=== PATIENT | male | born 1950 | race Asian ===

== ENCOUNTER 2020-03-27 08:12 | Outpatient (REF) | payer MEDICARE, OTHER, SELFPAY ==
[2020-03-27 09:20] LABS: MANUAL DIFF FLAG NO
[2020-03-27 09:26] LABS: Basophils Absolute Auto 0.1 X10*3/uL (0.0-0.2); Basophils Percent Auto 0.9 % (0-2); Eosinophils Absolute Auto 0.2 X10*3/uL (0.0-0.4); Hematocrit 44.9 % (42-52); Hemoglobin 14.2 g/dl (14.0-18.0); Imm Gran Abs Auto 0.01 X10*3/uL (0.00-0.03); Imm Gran Pct Auto 0.2 % (0.0-0.4); Lymphocytes Absolute Auto 1.5 X10*3/uL (1.2-4.9); Lymphocytes Percent Auto 28.4 % (20-40); Mean Corpuscular HGB Conc 31.6 g/dl (31.0-36.0); Mean Corpuscular Hemoglobin 24.8 pg (27.0-33.0); Mean Corpuscular Volume 78.5 fL (80-98); Mean Platelet Volume 9.7 fL (9.4-12.4); Monocytes Absolute Auto 0.5 X10*3/uL (0.1-1.2); Monocytes Percent Auto 9.5 % (2-11); Platelet Count 247 X10*3/uL (160-400); Red Blood Count 5.72 X10*6/uL (4.60-5.80); Red Cell Distribution Width 13.9 % (11.0-16.0); White Blood Count 5.3 X10*3/uL (4.8-10.8)
[2020-03-27 09:58] LABS: Alanine Aminotransferase 15 U/L (0-40); Albumin Level 4.1 g/dL (3.5-5.0); Alkaline Phosphatase 52 U/L (39-117); Anion Gap 11 (12-20); Aspartate Amino Transferase 17 U/L (5-37); Bilirubin Total 0.7 mg/dL (0.0-1.0); Blood Urea Nitrogen 10 mg/dL (9-16); Carbon Dioxide 29 mmol/L (22-29); Chloride 105 mmol/L (96-108); Cholesterol 179 mg/dL; Estimated Glomerular Filt Rate > 60; Glucose Random 95 mg/dL (60-115); HDL Cholesterol 52 mg/dL; LDL Cholesterol Calculated 109 mg/dl; Potassium 4.9 mmol/L (3.3-5.1); Sodium 140 mmol/L (135-145); Total Protein 6.8 g/dL (6.5-8.0); Triglycerides 91 mg/dL
[2020-03-27 10:57] LABS: Prostate Specific Antigen < 0.05 ng/mL (<0.05-4.0)
== END 2020-03-27 08:13 | disposition home or self-care (01) ==
LOC: HO.LAB 08:12
PROVIDERS: PCP Internal Medicine; Visit Provider Internal Medicine
DX: Z12.5 Encounter for screening for malignant neoplasm of prostate (principal); E78.00 Pure hypercholesterolemia, unspecified; K22.70 Barrett's esophagus without dysplasia; Z85.46 Personal history of malignant neoplasm of prostate
CPT/HCPCS: 36415; 80053; 80061; 84153; 85025

== ENCOUNTER 2020-10-15 07:25 | Day surgery (SDC) | payer MEDICARE, OTHER, SELFPAY ==
[2020-10-08 14:48] VITALS: BMI 26.7
--- NOTE | 2020-10-11 09:16 | P.CONAN_ITS ---
Documented by User: Abbey Sewell NP 10/11/20 09:18 HPI - Anesthesia Eval Consult details Narrative: 70yo M for Upper Endoscopy PENDING SALE TO [facility] Past Medical History Medical History Elevated cholesterol Hepatitis History of Avery's esophagus History of prostate cancer Surgical History Surgical History H/O colonoscopy History of esophagogastroduodenoscopy (EGD) Hx of prostatectomy Social History Social History Patient Tobacco Use Status: Never used Tobacco Advance Directives Information Provided: No Meds Allergies Allergy/AdvReac Type Severity Reaction Status Date / Time No Known Allergies Allergy Verified 10/15/20 07:00 Home Medications Medication Instructions Recorded Confirmed Last Taken Type Vitamin D3 1 tab PO DAILY 10/08/20 10/08/20 Unknown History calcium 1 tab PO DAILY 10/08/20 10/08/20 Unknown History esomeprazole magnesium 40 mg 40 mg PO DAILY 10/08/20 10/08/20 Unknown History capsule,delayed release (Nexium) rosuvastatin 5 mg tablet 1 tab PO DAILY 10/08/20 10/08/20 Unknown History Exam Exam Date and Time: October 11, 2020 0916 Height,Weight and Vital Signs: Height 6 ft Weight 89.358 kg Assessment and Plan Assessment Anesthesia Assessment: Chart Reviewed Documented by User: Lizbeth Lee MD 10/15/20 07:18 PENDING SALE TO [facility] Past Medical History Medical History Elevated cholesterol Hepatitis History of Avery's esophagus History of prostate cancer Family History Family history of problems with anesthesia: No Surgical History Surgical History H/O colonoscopy History of esophagogastroduodenoscopy (EGD) Hx of prostatectomy History of Problems with Anesthesia: No Social History Social History Patient Tobacco Use Status: Never used Tobacco Advance Directives Information Provided: No Meds Allergies Allergy/AdvReac Type Severity Reaction Status Date / Time No Known Allergies Allergy Verified 10/15/20 07:00 Home Medications Medication Instructions Recorded Confirmed Last Taken Type Vitamin D3 1 tab PO DAILY 10/08/20 10/08/20 Unknown History calcium 1 tab PO DAILY 10/08/20 10/08/20 Unknown History esomeprazole magnesium 40 mg 40 mg PO DAILY 10/08/20 10/08/20 Unknown History capsule,delayed release (Nexium) rosuvastatin 5 mg tablet 1 tab PO DAILY 10/08/20 10/08/20 Unknown History Exam Height,Weight and Vital Signs: Height 6 ft Weight 89.358 kg Vital Signs Temp Pulse Resp BP Pulse Ox 10/15/20 07:00 997.3 F H 53 18 156/79 H 99 Airway Mallampati Class: II TM Dist: >3cm Neck ROM: Full Partial: Lower Heart: RRR Lungs: CTAB Assessment and Plan Assessment Anesthesia Assessment: Anesthesia Plan Discussed Final Anesthetic Review Family History of Problems with Anesthesia: No History of Problems with Anesthesia: No NPO: Yes ASA Class: II Final Preanesthetic Review: No Changes in Pt Med Stat, Meds/Allgs Chart Reviewed, Consent Obtained/Reviewed and Anes Risks/Benef Reviewed Patient Risk: Low Procedure Risk: Low Assessment/Block/Sedation in SS: Assess/Block/Sedation-SS Anesthetic Plan Anesthetic Plan: MAC: Disposition: Standard PACU
[2020-10-15 07:00] VITALS: BP 156/79; PULSE 53; RESP 18; TEMP 36.3; O2SAT 99
[2020-10-15] MEDS: Lactated Ringers 1,000 ML 100 ML IVCONT (07:09)
--- NOTE | 2020-10-15 07:33 | MHC.SHP ---
Pre-Procedural Eval Section A Date of Service: 10/15/20 The patient is an INPATIENT: No Section B Chief Complaint: melendez's esophagus Details of Present Illness: see H&P no changes Relevant Family History (Specify if Yes): No Present Medications: see Short Stay Collaborative assessment Medical History: No relevant PMH History of Previous Operations: No relevant previous surgery Allergies: Allergies Allergy/AdvReac Type Severity Reaction Status Date / Time No Known Allergies Allergy Verified 10/15/20 07:00 Review of Systems Sugical H&P ROS: Negative: Constitution, Cardiovascular, Respiratory, Neurological, Psychiatric, Hem-Onc, Allergic/Immunologic, Gastrointestinal, Genitourinary, Musculoskeletal, Integumentary, Endocrine and Eyes/Ears/Nose/Throat Exam Surgical H&P Exam: Normal: HEENT, Normal: Heart, Normal: Lungs, Normal: Extremities, Normal: Abdomen, Normal: Skin and Normal: Neurological Plan Diagnosis/Plan: Unchanged I have reviewed the history and physical and performed a pertinent physical examination on my patient. No changes have occurred unless specified.
--- NOTE | 2020-10-15 07:48 | P.BOP_ITS ---
Brief Operative Note Date of Service: 10/15/20 Pre-op diagnosis: barretts esophagus Procedure: upper endoscopy Surgeon: Lopez Aguilera Anesthesia: MAC Was an Assistant Activities Director used for this Procedure?: No Estimated blood loss (mL): 2 Pathology: other (bxs egj) Condition: stable Disposition: PACU
[2020-10-15 07:51] VITALS: BP 101/59; PULSE 58; TEMP 36.3; O2SAT 100
[2020-10-15 08:07] VITALS: BP 107/67; PULSE 64; RESP 16; TEMP 36.3; O2SAT 98
--- NOTE | 2020-10-15 08:43 | OP_ITS ---
SURGEON: Lopez Aguilera MD INDICATIONS: Avery's esophagus. PREOPERATIVE DIAGNOSIS: POSTOPERATIVE DIAGNOSIS: PROCEDURE PERFORMED: Upper endoscopy with biopsy. ESTIMATED BLOOD LOSS: COMPLICATIONS: ANESTHESIA: ASSISTANTS: SPECIMENS: MEDICATIONS: Monitored anesthesia care. DESCRIPTION OF PROCEDURE: History and physical performed. The risks and benefits of the procedure were explained to the patient. Informed consent was obtained. The patient was placed in the left lateral decubitus position. The Olympus video gastroscope was introduced into the esophagus, stomach, and duodenum. Examination was performed and the scope was removed. He tolerated the procedure well and was taken recovery area in stable condition. FINDINGS: Esophagus: There was an irregular EG junction. There were no raised lesions or ulcerated areas. Stomach: The stomach was normal. Duodenum: The bulb and second portion were normal. Biopsies were obtained from the EG junction. IMPRESSION: Avery's esophagus. RECOMMENDATION: Follow up the biopsy results. MD GORDO Manley/MONSE / [id number]
== END 2020-10-15 08:40 | disposition home or self-care (01) ==
PROVIDERS: PCP Internal Medicine; Visit Provider Internal Medicine Gastroenterology
PROC: 0DJ08ZZ Inspection of Upper Intestinal Tract, Via Natural or Artificial Opening Endoscopic (ICD-10-PCS; CPT 43235; principal; 2020-10-15 07:30)
DX: K22.70 Barrett's esophagus without dysplasia (principal); K20.90 Esophagitis, unspecified without bleeding
CPT/HCPCS: 43239; 88305; J3010